=== PATIENT | female | born 1950 | race Caucasian/White ===

== ENCOUNTER 2020-02-23 12:25 | Emergency (ER) | payer MEDICARE, BC ==
[2020-02-23] MEDS ORDERED: DIPH/PERTUSS(ACELL)/TETANUS VAC/PF 0.5 ML SYR (>=10YO) IM ONE (12:39)
--- NOTE | 2020-02-23 12:42 | ER Document Report ---
ED Medical Screen (RME) - General Chief Complaint: Finger Injury Stated Complaint: FINGER INJURY Time Seen by Provider: 02/23/20 12:39 Primary Care Provider: TAMMIE BARDALES MD [Primary Care Provider] - Follow up as needed Information source: Patient Notes: This is a 69-year-old female presented to the emergency room today stating that she had gotten her finger stuck in a hedge tremor that was operating. She has pulsatile bleeding to the medial base of the left index finger. I provided initial evaluations this patient in the triage area at the [facility] be completed and the patient will be evaluated by another provider in the back of the department who will complete care and do a complete assessment. TRAVEL OUTSIDE OF THE [place] IN LAST 30 DAYS: No - Related Data Allergies/Adverse Reactions: No Known Allergies Allergy (Verified 07/08/14 03:12) Past Medical History - Past Medical History Cardiac Medical History: Reports: Hx Heart Attack, Hx Hypertension Musculoskeltal Medical History: Reports Hx Fibromyalgia Psychiatric Medical History: Reports: Hx Depression - Immunizations Hx Diphtheria, Pertussis, Tetanus Vaccination: Yes Physical Exam - Vital signs Vitals: Temp Pulse Resp BP Pulse Ox 97.8 F 77 16 153/69 H 96 02/23/20 12:31 02/23/20 12:31 02/23/20 12:31 02/23/20 12:31 02/23/20 12:31 Course - Vital Signs Vital signs: Temp Pulse Resp BP Pulse Ox 97.8 F 77 16 153/69 H 96 02/23/20 12:32 02/23/20 12:31 02/23/20 12:31 02/23/20 12:31 02/23/20 12:31 Doctor's Discharge - Discharge Referrals: TAMMIE BARDALES MD [Primary Care Provider] - Follow up as needed
--- NOTE | 2020-02-23 13:21 | RADIOLOGY REPORT (SQ) ---
EXAM DESCRIPTION: HAND LEFT 3 VIEWS IMAGES COMPLETED DATE/TIME: 02/23/2020 1:08 pm REASON FOR STUDY: pain COMPARISON: None. EXAM PARAMETERS: NUMBER OF VIEWS: Three views. TECHNIQUE: AP, lateral and oblique radiographic images acquired of the left hand. LIMITATIONS: None. FINDINGS: MINERALIZATION: Osteopenia. BONES: No acute fracture or dislocation. No worrisome bone lesions. JOINTS: No effusion. SOFT TISSUES: Mild soft tissue swelling. No radiopaque foreign body. OTHER: No other significant finding. IMPRESSION: NO FRACTURE. TECHNICAL DOCUMENTATION: JOB ID: [id number] [place]-72 2010 [employer]- All Rights Reserved Reading location - IP/workstation name: [email or web address]
[2020-02-23] MEDS ORDERED: LIDOCAINE 1% INJ-PF (10 MG/ML) 30 ML SDV INJ ONE (13:31)
[2020-02-23] MEDS ORDERED: HYDROCODONE/ACETAMINOPHEN 5-325 MG TABLET PO ONE (13:31)
--- NOTE | 2020-02-23 13:39 | ER Document Report ---
HPI - HPI Time Seen by Provider: 02/23/20 12:39 Pain Level: 4 Notes: Patient is a 69-year-old female presenting to the emergency department chief complaint of laceration to her left second digit. Patient reports she was trimming hedges with an electric hedge cutter when the hedge cutter fell cutting her left hand just prior to arrival. Her tetanus was updated by the triage provider. She has normal sensation and full range of motion to the affected digit. - REPRODUCTIVE Reproductive: DENIES: : - MUSCULOSKELETAL Musculoskeletal: REPORTS: Extremity pain Past Medical History - General Information source: Patient - Social History Smoking Status: Never Smoker Family History: Reviewed & Not Pertinent Patient has homicidal ideation: No - Past Medical History Cardiac Medical History: Reports: Hx Heart Attack, Hx Hypertension Musculoskeletal Medical History: Reports Hx Fibromyalgia Psychiatric Medical History: Reports: Hx Depression - Immunizations Hx Diphtheria, Pertussis, Tetanus Vaccination: Yes Vertical Provider Document - CONSTITUTIONAL Notes: PHYSICAL EXAMINATION: GENERAL: Well-appearing, well-nourished and in no acute distress. HEAD: Atraumatic, normocephalic. EYES: Pupils equal round extraocular movements intact, conjunctiva are normal. ENT: Nares patent NECK: Normal range of motion LUNGS: No respiratory distress Musculoskeletal: Normal range of motion to left hand, normal range of motion to left second digit, normal flexion and extension. NEUROLOGICAL: Normal speech, normal gait. PSYCH: Normal mood, normal affect. SKIN: 5cm Laceration noted to the base of the left second digit, this is irr egular, there is no active bleeding noted at this time. Second 3 cm laceration noted to the left second digit at the PIP, this is also irregular and there is no active bleeding noted. - INFECTION CONTROL TRAVEL OUTSIDE OF THE [place] IN LAST 30 DAYS: No Course - Re-evaluation Re-evalutation: 02/23/20 15:09 Laceration repaired under sterile technique, patient tolerated well, see procedure note. Patient has full range of motion, cap refill less than 3 seconds and normal motor and sensation distal to lacerations. There was no active bleeding during the laceration repair. She will follow-up with orthopedics as a precaution. - Vital Signs Vital signs: Temp Pulse Resp BP Pulse Ox 97.8 F 77 16 153/69 H 96 02/23/20 12:32 02/23/20 12:31 02/23/20 12:31 02/23/20 12:31 02/23/20 12:31 Procedures - Laceration/Wound Repair L index finger #1 Wound length (cm): 5 Wound's Depth, Shape: Irregular, Flap Laceration pre-procedure: Sterile PPE donned Anesthetic type: 1% Lidocaine Irrigated w/ Saline (mLs): 250 Wound Repaired With: Sutures Suture Size/Type: 5:0 Number of Sutures: 7 Post-procedure NV exam normal: Yes Complications: No Left index finger #2 Wound length (cm): 3 Wound's Depth, Shape: Irregular, Flap Laceration pre-procedure: Sterile PPE donned Anesthetic type: 1% Lidocaine Irrigated w/ Saline (mLs): 250 Wound Repaired With: Sutures Suture Size/Type: 5:0 Number of Sutures: 5 Discharge - Discharge Clinical Impression: left second digit laceration Condition: Stable Disposition: HOME, SELF-CARE Additional Instructions: Laceration Care Your laceration has been sutured to keep the skin edges aligned during healing. The time of suture removal depends on the nature and location of your cut. Please follow the care instructions the doctor has outlined for you and return for further care, according to the schedule you've been given. Keep the wound and dressing clean. Unless you were told otherwise, you may shower daily, blotting the wound dry with a clean, unused towel. At other times, If the dressing gets wet or blood soaked, remove it and blot the wound dry, then reapply a new dressing. Unless you were instructed otherwise, dressi ngs should be changed at least daily. If any signs of infection occur (swelling, redness, increasing tenderness, red streaks, tender lumps in the armpit or groin above the laceration, or fever), see the doctor immediately. Please return to the emergency department or your primary care provider in 8-10 days for suture removal. I would like you to be seen by orthopedics in the next 1 to 2 days for follow-up. If you would like to call your orthopedic doctor in [place] you may do so. If you are unable to get into see him please call Dr. Rush's office as outlined below. Please return earlier if you develop any signs of infection such as increased redness, swelling, foul- smelling drainage or fever. Prescriptions: Cephalexin [Keflex] 500 mg PO BID #14 capsule Referrals: LUPILLO MENDOZA DO [ACTIVE STAFF] - Follow up as needed
[2020-02-23] MEDS ORDERED: CEPHALEXIN 500 MG CAPSULE PO ONE (15:07)
[2020-02-23 15:25] VITALS: BP 159/75
== END 2020-02-23 15:36 | disposition home or self-care (01) ==
LOC: ER 12:25
PROC: 0HQGXZZ Repair Left Hand Skin, External Approach (ICD-10-PCS; principal; 2020-02-23)
DX: S61.211A Laceration without foreign body of left index finger without damage to nail, initial encounter (principal); W29.3XXA Contact with powered garden and outdoor hand tools and machinery, initial encounter; I10 Essential (primary) hypertension; I25.2 Old myocardial infarction
CPT/HCPCS: 99283; 90471; 73130; 90715; 12004; A9270 ×2